=== PATIENT | male | born 1995 | race Caucasian/White ===

== ENCOUNTER 2018-02-08 19:09 | Emergency (ER) | payer MEDICAID, OTHER ==
[2018-02-08] MEDS: ACETAMINOPHEN 325 MG TAB PO (20:30)
[2018-02-08] MEDS: DIPHENHYDRAMINE 50 MG CAP PO (20:30)
[2018-02-08] MEDS: KETOROLAC 60 MG INJ IM (20:33)
== END 2018-02-08 21:45 | disposition home or self-care (01) ==
LOC: FTE 19:09
DX: J20.9 Acute bronchitis, unspecified (principal); R21 Rash and other nonspecific skin eruption
CPT/HCPCS: 93005; 96372; 99284-25